=== PATIENT | male | born 1975 | race Caucasian/White ===

== ENCOUNTER 2017-10-21 14:18 | Emergency (ER) | payer SELFPAY ==
[2017-10-21 14:25] VITALS: RESP 16
[2017-10-21] MEDS ORDERED: CHLORDIAZEPOXIDE 25MG PREPK#6 BTL TAKEHOME ONE (15:02)
--- NOTE | 2017-10-21 15:02 | EDPHY ---
H & P Stated Complaint: Med clear for ARC, hx w/d seizures Time Seen by Provider: 10/21/17 14:53 HPI/ROS: CHIEF COMPLAINT: Worried about alcohol withdrawal HISTORY OF PRESENT ILLNESS: The patient is a 42-year-old man with history of alcoholism and alcohol withdrawal seizures. He states that he had been sober for about a year but fell off the wagon 7 days ago. His last drink was 3 hr ago. He would like to get sober. He is concerned that he will need assistance without. He has not had a seizure. He has not had any head trauma. No fevers or infections. REVIEW OF SYSTEMS: Constitutional: denies: chills, fever, recent illness, recent injury EENTM: denies: blurred vision, double vision, nose congestion Respiratory: denies: cough, shortness of breath Cardiac: denies: chest pain, irregular heart rate, lightheadedness, palpitations Gastrointestinal/Abdominal: denies: abdominal pain, diarrhea, nausea, vomiting, blood streaked stools Genitourinary: denies: dysuria, frequency, hematuria, pain Musculoskeletal: denies: joint pain, muscle pain Skin: denies: lesions, rash, jaundice, bruising Neurological: denies: headache, numbness, paresthesia, tingling, dizziness, weakness Hematologic/Lymphatic: denies: blood clots, easy bleeding, easy bruising Immunologic/allergic: denies: HIV/AIDS, transplant EXAM: GENERAL: Well-appearing, well-nourished and in no acute distress. HEAD: Atraumatic, normocephalic. EYES: Pupils equal round and reactive to light, extraocular movements intact, sclera anicteric, conjunctiva are normal. ENT: TMs normal, nares patent, oropharynx clear without exudates. Moist mucous membranes. NECK: Normal range of motion, supple without lymphadenopathy or JVD. LUNGS: Breath sounds clear to auscultation bilaterally and equal. No wheezes rales or rhonchi. HEART: Regular rate and rhythm without murmurs, rubs or gallops. ABDOMEN: Soft, nontender, normoactive bowel sounds. No guarding, no rebound. No masses appreciated. BACK: No CVA tenderness, no spinal tenderness, step-offs or deformities EXTREMITIES: Normal range of motion, no pitting or edema. No clubbing or cyanosis. NEUROLOGICAL: Cranial nerves II through XII grossly intact. Normal speech, normal gait. 5/5 strength, normal movement in all extremities, normal sensation PSYCH: Normal mood, normal affect. SKIN: Warm, dry, normal turgor, no visible rashes or lesions. Source: Patient Exam Limitations: No limitations - Personal History Current Tetanus/Diphtheria Vaccine: Unsure Current Tetanus Diphtheria and Acellular Pertussis (TDAP): Unsure - Medical/Surgical History Hx Asthma: No Hx Chronic Respiratory Disease: No Hx Diabetes: No Hx Cardiac Disease: No Hx Renal Disease: No Hx Cirrhosis: No Hx Alcoholism: No Hx HIV/AIDS: No Hx Splenectomy or Spleen Trauma: No Other PMH: asthma. etoh abuse w/ w/d seizures - Family History Significant Family History: No pertinent family hx - Social History Smoking Status: Current every day smoker Alcohol Use: Sober Drug Use: None Constitutional: Initial Vital Signs Temperature (C) 36.5 C 10/21/17 14:23 Heart Rate 90 10/21/17 14:23 Respiratory Rate 16 10/21/17 14:23 Blood Pressure 115/68 10/21/17 14:23 O2 Sat (%) 90 L 10/21/17 14:23 O2 Delivery Mode Room Air Allergies/Adverse Reactions: penicillin G Allergy (Verified 10/21/17 14:23) Home Medications: Medication Instructions Recorded Ventolin Hfa 10/21/17 Medical Decision Making ED Course/Re-evaluation: 3:00 p.m. the patient does not show any signs of withdrawal. He has normal conversation. He can ambulate. I will send him to the alcohol recovery [facility] with Librium prepack. He agrees with this plan. Differential Diagnosis: Partial list of the Differential diagnosis considered include but were not limited to; the alcoholism, alcohol withdrawal and although unlikely based on the history and physical exam, I also considered seizure, infection, head injury. I discussed these differential diagnoses and the plan with the patient as well as the usual and expected course. The patient understands that the diagnosis is provisional and that in medicine we are not always correct and that further workup is often warranted. Usual and customary warnings were given. All of the patient's questions were answered. The patient was instructed to return to the emergency department should the symptoms at all worsen or return, otherwise to followup with the physician as we discussed. - Data Points Medications Given: Discontinued Medications Chlordiazepoxide (Librium 25 Mg Prepack#6) 1 btl TAKEALEXUS EDNOW ONE Stop: 10/21/17 15:03 Last Admin: 10/21/17 15:05 Dose: 1 btl Departure - Departure Disposition: Home, Routine, Self-Care Clinical Impression: Alcoholism Condition: Fair Instructions: Chlordiazepoxide (By mouth), Alcohol Dependence (ED) Additional Instructions: Go directly to the alcohol recovery Center Referrals: NONE *PRIMARY CARE P,. [Primary Care Provider] - As per Instructions ([facility])
[2017-10-21 15:28] VITALS: BP 143/84; PULSE 74; TEMP 97.9; O2SAT 96
== END 2017-10-21 15:24 | disposition home or self-care (01) ==
DX: F10.20 Alcohol dependence, uncomplicated (principal); F17.200 Nicotine dependence, unspecified, uncomplicated; J45.909 Unspecified asthma, uncomplicated